=== PATIENT | male | born 1970 | race Caucasian/White ===

== ENCOUNTER 2017-03-28 07:58 | Emergency (ER) | payer SELFPAY ==
[~2017-03-28] VITALS: Ht 167.6 cm; Wt 95.3 kg
[2017-03-28 08:21] VITALS: BP 172/98
--- NOTE | 2017-03-28 08:30 | NUR ---
Pt w/c assisted to bed 3.
--- NOTE | 2017-03-28 08:35 | NUR ---
X-Ray at bedside.
--- NOTE | 2017-03-28 08:37 | NUR ---
46/M c/o left foot/great toe pain x2 days. Pt states she was walking into his house and hit his toes on a cement curb while going in the house. Pt states the day after the injury he was unable to bear any weight. Pt describes as throbbing, constant, 9/10 pain. Purple discoloration to top of left foot, mild swelling. Pedal pulses strong and regular bilaterally. Sensation intact. Cap refill less than 2 seconds. Denies any numbness or tingling. VSS. AOX4, slovenian speaking, clear speech. Resting comfortably in bed. Comfort needs met.
[2017-03-28] MEDS ORDERED: KETOROLAC 60 MG/2 ML VIAL IM ONE (08:55)
[2017-03-28 10:35] VITALS: BP 145/97
--- NOTE | 2017-03-28 10:35 | NUR ---
Patient discharged with v/s stable. Written and verbal after care instructions given and explained. Patient alert, oriented and verbalized understanding of instructions. Ambulatory with steady gait. All questions addressed prior to discharge. ID band removed. Patient advised to follow up with PMD. Rx of Colchicine 0.6mg tablet and Indomethacin 50mg Capsule given. Patient educated on indication of medication including possible reaction and side effects. Opportunity to ask questions provided and answered.
== END 2017-03-28 10:35 | disposition home or self-care (01) ==
LOC: MED 07:58
DX: M10.9 Gout, unspecified (principal); M79.675 Pain in left toe(s); R03.0 Elevated blood-pressure reading, without diagnosis of hypertension
CPT/HCPCS: 36415; 73630; 84550; 96372; 99285; J1885; Q0092